=== PATIENT | male | born 1955 | race Caucasian/White ===

== ENCOUNTER 2016-08-10 10:45 | Emergency (ER) | payer OTHER ==
[2016-08-10] MEDS ORDERED: Adacel (T-DAP) 0.5 ML VIAL ONE (11:46)
[2016-08-10] MEDS ORDERED: Clindamycin 150 MG CAP ONE (11:53)
== END 2016-08-10 12:11 | disposition home or self-care (01) ==
LOC: BURERS 10:45
DX: S31.821A Laceration without foreign body of left buttock, initial encounter (principal); I10 Essential (primary) hypertension; Z79.899 Other long term (current) drug therapy; W18.2XXA Fall in (into) shower or empty bathtub, initial encounter
CPT/HCPCS: 90471; 90715